=== PATIENT | male | born 1965 ===

== ENCOUNTER 2019-03-27 03:30 | Emergency (ER) | payer SELFPAY ==
[2019-03-27] MEDS: DIPH,PERTUSS(ACELL),TET VAC/PF 0.5 ML DISP.SYRIN IM ONE ×2 (04:00→04:40)
[2019-03-27] MEDS: LIDOCAINE HCL 2%/EPI. (1:200,000) PF 20ML VIAL IJ ONE ×2 (04:00→04:41)
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
[2019-03-27 04:42] VITALS: BP 106/65
== END 2019-03-27 04:40 | disposition home or self-care (01) ==
LOC: ED 03:30
DX: S01.81XA Laceration without foreign body of other part of head, initial encounter (principal); Y04.8XXA Assault by other bodily force, initial encounter
CPT/HCPCS: 12013; 90471; 90715; 99282; 99284